=== PATIENT | male | born 1935 | race Caucasian/White ===

== ENCOUNTER 2018-11-06 10:41 | Inpatient (IN) ==
[2018-11-06] MEDS ORDERED: ALBUTEROL 2.5 MG/3 ML NEB RESP TX STA (11:09)
[2018-11-06] MEDS ORDERED: SODIUM CHLORIDE 0.9% 500 ML IV STA (11:09)
[2018-11-06] MEDS ORDERED: methylPREDNISolone SOD SUC 125 MG/2 ML VIAL IV STA (11:09)
[2018-11-06 11:30] LABS: Basophils # 0.1 10*3/uL (0.0-0.2); Basophils % 0.6 % (0.0-0.8); Eosinophils # 0.2 10*3/uL (0.0-0.87); Eosinophils % 2.1 % (0.00-10.9); Hematocrit 37.2 VOL% (42.0-52.0); Hemoglobin 11.1 GM/DL (14.0-18.0); Immature Granulocytes % 0.5 %; Immature Granulocytes Absolute 0.05 #; Lymphocytes # 1.1 10*3/uL (1.4-4.0); Lymphocytes % 10.7 % (21.2-54.2); Mean Corpuscular HGB Conc 29.8 GM/DL (32-36); Mean Corpuscular Hemoglobin 27 PG (27-34); Mean Platelet Volume 10.8 FL (9.6-12.0); Monocytes # 0.8 10*3/uL (0.11-0.8); Monocytes % 7.1 % (1.7-12.7); Neutrophils # 8.4 10*3/uL (1.4-7.4); Platelet Count 226 T/CUMM (130-400); Red Blood Count 4.18 MC/CUMM (3.8-5.5); Red Cell Distribution Width 16.5 % (9.3-17.3); White Blood Count 10.6 T/CUMM (4-12)
[2018-11-06 11:39] LABS: INR 1.2; PT Patient Result 12.5 SECS; Partial Thromboplastin Time 31.6 SECS (0-40)
[2018-11-06 11:49] LABS: ABG Base Excess -2.8 MMOL/L (-2.5-2.5); ABG Oxygen Saturation 94.7 % (95-100); ABG PCO2 27.4 MM HG (35-48); ABG PH 7.466 (7.35-7.45); ABG PO2 71.6 MM HG (80-95); ABG TCO2 17.6 MMOL/L (23-27)
[2018-11-06 12:11] LABS: Bilirubin,Total 0.6 MG/DL (0.2-1.0); Calcium 8.4 MG/DL (8.5-10.1); Osmolality,Calculated 272.1 MOS/KG (273-304); Potassium 4.4 MMOL/L (3.5-5.1); Total Protein 6.8 G/DL (6.4-8.3)
[2018-11-06] MEDS ORDERED: MEROPENEM 1,000 MG in SODIUM CHLORIDE 0.9% 100 ML IV STA (12:12)
[2018-11-06] MEDS ORDERED: ACETAMINOPHEN 325 MG TABLET PO PRN ×2 (12:37→12:42)
[2018-11-06] MEDS ORDERED: traZODone 50 MG TABLET PO PRN (12:42)
[2018-11-06] MEDS ORDERED: ONDANSETRON 4 MG/2 ML VIAL IV PRN (12:42)
[2018-11-06] MEDS ORDERED: ZALEPLON 5 MG CAPSULE PO PRN (12:42)
[2018-11-06] MEDS ORDERED: diphenhydrAMINE CAP 25 MG CAPSULE PO PRN (12:42)
[2018-11-06 13:16] LABS: Risk Ratio 1.92; Thyroid Stimulating Hormone 0.417 uIU/ml (0.358-3.74); VLDL CHOLESTEROL 17.6 MG/DL
[2018-11-06] MEDS ORDERED: SODIUM CHLORIDE 0.9% 500 ML IV ONE (13:16)
[2018-11-06] MEDS ORDERED: methylPREDNISolone SOD SUC 40 MG/1 ML VIAL ONE (13:46)
[2018-11-06] MEDS: methylPREDNISolone SOD SUC 40 MG/1 ML VIAL IV SCH ×2 (13:50→20:50)
[2018-11-06] MEDS: ALBUTEROL 2.5 MG/3 ML NEB RESP TX SCH ×2 (13:51→22:33)
[2018-11-06] MEDS: SODIUM CHLORIDE 0.9% 1,000 ML IV SCH (14:50)
[2018-11-06] MEDS: METOPROLOL TARTRATE 50 MG TABLET PO SCH ×2 (15:41→20:50)
[2018-11-06] MEDS: DORZOLAMIDE 2% OPH SOLN 10 ML BOTTLE BOTH EYES SCH ×2 (15:41→20:50)
[2018-11-06 17:32] LABS: Apearance,Urine CLEAR (Clear); Bilirubin,Urine Negative (Negative); Blood, Urine Negative (Negative); Glucose,Urine (UA) Negative (Negative); Hyaline Casts,Urine 1 /LPF (0-3); Ketones,Urine 20 mg/dL (Negative); Mucus,Urine Occasional /LPF (Occasional); Nitrite,Urine Negative (Negative); Protein,Urine 30 MG/DL; RBC,Urine 24 /HPF (0-4); Renal Epithelial Cells,Urine Occasional /HPF (<1); Squamous Epithelial Cell,Urine Occasional /HPF (0-10); Urine Color Yellow (Yellow); Urine Specific Gravity 1.016 (1.001-1.035); Urine Urobilinogen < 2.0 EU/DL (0.2-1.0); WBC,Urine 12 /HPF (0-6)
[2018-11-06] MEDS: APIXABAN 2.5 MG TABLET PO SCH (20:50)
[2018-11-06] MEDS: SULFAMETHOX/TRIMETHOPRIM 800-160 MG TABLET PO SCH (20:50)
[2018-11-06] MEDS: BIMATOPROST 0.01% OPH SOLN 2.5 ML BOTTLE BOTH EYES SCH (20:50)
[2018-11-06] MEDS: DOCUSATE SODIUM 100 MG CAPSULE PO SCH (20:50)
[2018-11-07] MEDS: SODIUM CHLORIDE 0.9% 1,000 ML IV SCH ×3 (01:11→20:35)
[2018-11-07] MEDS: methylPREDNISolone SOD SUC 40 MG/1 ML VIAL IV SCH ×3 (04:57→20:36)
[2018-11-07 05:20] LABS: Basophils % 0.1 % (0.0-0.8); Eosinophils % 0.1 % (0.00-10.9); Hematocrit 35.5 VOL% (42.0-52.0); Hemoglobin 10.5 GM/DL (14.0-18.0); Immature Granulocytes % 0.7 %; Immature Granulocytes Absolute 0.05 #; Lymphocytes # 0.7 10*3/uL (1.4-4.0); Lymphocytes % 9.5 % (21.2-54.2); Mean Corpuscular HGB Conc 29.6 GM/DL (32-36); Mean Corpuscular Hemoglobin 27 PG (27-34); Mean Corpuscular Volume 89.9 FL (87-102); Mean Platelet Volume 10.7 FL (9.6-12.0); Monocytes # 0.3 10*3/uL (0.11-0.8); Monocytes % 3.5 % (1.7-12.7); Neutrophils # 6.6 10*3/uL (1.4-7.4); Neutrophils % 86.1 % (38.7-73.9); Platelet Count 204 T/CUMM (130-400); Red Blood Count 3.95 MC/CUMM (3.8-5.5); Red Cell Distribution Width 16.1 % (9.3-17.3); White Blood Count 7.6 T/CUMM (4-12)
[2018-11-07 05:25] LABS: Albumin 2.6 G/DL (3.4-5.0); Bilirubin,Total 0.7 MG/DL (0.2-1.0); Calcium 7.8 MG/DL (8.5-10.1); Osmolality,Calculated 282.5 MOS/KG (273-304); Potassium 4.3 MMOL/L (3.5-5.1); Total Protein 6.2 G/DL (6.4-8.3)
[2018-11-07] MEDS: ALBUTEROL 2.5 MG/3 ML NEB RESP TX SCH ×3 (06:57→22:50)
[2018-11-07] MEDS ORDERED: NON-FORMULARY MEDICATION (Fluticasone/Umeclidin/Vilanter [Trelegy Ellipta 100-62.5-25] 1 E INH SCH (09:00)
[2018-11-07] MEDS: ROSUVASTATIN 10 MG TABLET PO SCH (09:03)
[2018-11-07] MEDS: amLODIPine 5 MG TABLET PO SCH (09:03)
[2018-11-07] MEDS: POTASSIUM CHLORIDE 20 MEQ TABLET PO SCH (09:03)
[2018-11-07] MEDS: SULFAMETHOX/TRIMETHOPRIM 800-160 MG TABLET PO SCH ×2 (09:03→20:36)
[2018-11-07] MEDS: MULTIVITAMIN (CENTRUM) TABLET PO SCH (09:03)
[2018-11-07] MEDS: DOCUSATE SODIUM 100 MG CAPSULE PO SCH ×2 (09:04→20:36)
[2018-11-07] MEDS: PANTOPRAZOLE 40 MG TABLET PO SCH (09:04)
[2018-11-07] MEDS: METOPROLOL TARTRATE 50 MG TABLET PO SCH ×2 (09:04→20:36)
[2018-11-07] MEDS: APIXABAN 2.5 MG TABLET PO SCH ×2 (09:04→20:36)
[2018-11-07] MEDS: DORZOLAMIDE 2% OPH SOLN 10 ML BOTTLE BOTH EYES SCH ×3 (09:11→20:36)
[2018-11-07] MEDS: GABAPENTIN 600 MG TABLET PO SCH ×2 (13:15→20:36)
[2018-11-07] MEDS: BIMATOPROST 0.01% OPH SOLN 2.5 ML BOTTLE BOTH EYES SCH (20:36)
[2018-11-08 03:39] LABS: Basophils % 0.2 % (0.0-0.8); Hematocrit 31.7 VOL% (42.0-52.0); Hemoglobin 9.4 GM/DL (14.0-18.0); Immature Granulocytes % 0.5 %; Immature Granulocytes Absolute 0.06 #; Lymphocytes # 0.5 10*3/uL (1.4-4.0); Lymphocytes % 4.3 % (21.2-54.2); Mean Corpuscular HGB Conc 29.7 GM/DL (32-36); Mean Corpuscular Hemoglobin 27 PG (27-34); Mean Corpuscular Volume 90.6 FL (87-102); Mean Platelet Volume 10.8 FL (9.6-12.0); Monocytes # 0.5 10*3/uL (0.11-0.8); Monocytes % 4.6 % (1.7-12.7); Neutrophils # 10.6 10*3/uL (1.4-7.4); Neutrophils % 90.4 % (38.7-73.9); Platelet Count 201 T/CUMM (130-400); Red Cell Distribution Width 16.2 % (9.3-17.3); White Blood Count 11.8 T/CUMM (4-12)
[2018-11-08 04:00] LABS: Albumin 2.5 G/DL (3.4-5.0); Bilirubin,Total 0.4 MG/DL (0.2-1.0); Calcium 7.9 MG/DL (8.5-10.1); Osmolality,Calculated 288.1 MOS/KG (273-304); Potassium 4.6 MMOL/L (3.5-5.1); Total Protein 5.6 G/DL (6.4-8.3)
[2018-11-08 04:04] LABS: Lymphocytes 7 % (20-55); Segmented Neutrophils 91 % (50-85); Total Cells Counted 100
[2018-11-08 04:05] LABS: Ovalocytes 1+; Platelet Estimate Normal
[2018-11-08] MEDS: methylPREDNISolone SOD SUC 40 MG/1 ML VIAL IV SCH ×3 (04:25→21:33)
[2018-11-08] MEDS: ALBUTEROL 2.5 MG/3 ML NEB RESP TX SCH ×3 (08:50→23:28)
[2018-11-08] MEDS: SODIUM CHLORIDE 0.9% 1,000 ML IV SCH ×2 (09:00→17:12)
[2018-11-08] MEDS: SULFAMETHOX/TRIMETHOPRIM 800-160 MG TABLET PO SCH ×2 (09:01→21:32)
[2018-11-08] MEDS: GABAPENTIN 600 MG TABLET PO SCH ×2 (09:01→21:32)
[2018-11-08] MEDS: DOCUSATE SODIUM 100 MG CAPSULE PO SCH ×2 (09:01→21:33)
[2018-11-08] MEDS: ROSUVASTATIN 10 MG TABLET PO SCH (09:01)
[2018-11-08] MEDS: METOPROLOL TARTRATE 50 MG TABLET PO SCH ×2 (09:01→21:33)
[2018-11-08] MEDS: MULTIVITAMIN (CENTRUM) TABLET PO SCH (09:01)
[2018-11-08] MEDS: amLODIPine 5 MG TABLET PO SCH (09:02)
[2018-11-08] MEDS: POTASSIUM CHLORIDE 20 MEQ TABLET PO SCH (09:02)
[2018-11-08] MEDS: DORZOLAMIDE 2% OPH SOLN 10 ML BOTTLE BOTH EYES SCH ×3 (09:02→21:33)
[2018-11-08] MEDS: APIXABAN 2.5 MG TABLET PO SCH ×2 (09:02→21:33)
[2018-11-08] MEDS: PANTOPRAZOLE 40 MG TABLET PO SCH (09:02)
[2018-11-08] MEDS: BIMATOPROST 0.01% OPH SOLN 2.5 ML BOTTLE BOTH EYES SCH (21:33)
[2018-11-09] MEDS: SODIUM CHLORIDE 0.9% 1,000 ML IV SCH ×2 (03:12→16:21)
[2018-11-09] MEDS: methylPREDNISolone SOD SUC 40 MG/1 ML VIAL IV SCH ×3 (03:31→20:27)
[2018-11-09 05:28] LABS: Basophils % 0.1 % (0.0-0.8); Hemoglobin 9.7 GM/DL (14.0-18.0); Immature Granulocytes Absolute 0.12 #; Lymphocytes # 0.4 10*3/uL (1.4-4.0); Lymphocytes % 3.4 % (21.2-54.2); Mean Corpuscular HGB Conc 29.4 GM/DL (32-36); Mean Corpuscular Hemoglobin 27 PG (27-34); Mean Corpuscular Volume 90.7 FL (87-102); Mean Platelet Volume 10.9 FL (9.6-12.0); Monocytes # 0.5 10*3/uL (0.11-0.8); Monocytes % 3.9 % (1.7-12.7); Neutrophils # 11.2 10*3/uL (1.4-7.4); Neutrophils % 91.6 % (38.7-73.9); Platelet Count 207 T/CUMM (130-400); Red Blood Count 3.64 MC/CUMM (3.8-5.5); Red Cell Distribution Width 16.2 % (9.3-17.3); White Blood Count 12.2 T/CUMM (4-12)
[2018-11-09 05:57] LABS: Albumin 2.7 G/DL (3.4-5.0); Bilirubin,Total 0.8 MG/DL (0.2-1.0); Calcium 7.9 MG/DL (8.5-10.1); Osmolality,Calculated 286.3 MOS/KG (273-304); Potassium 4.7 MMOL/L (3.5-5.1); Total Protein 5.8 G/DL (6.4-8.3)
[2018-11-09 06:08] LABS: Lymphocytes 2 % (20-55); Segmented Neutrophils 95 % (50-85); Total Cells Counted 100
[2018-11-09 06:09] LABS: Ovalocytes 1+
[2018-11-09 06:10] LABS: Hypochromasia Slight; Platelet Estimate Normal
[2018-11-09] MEDS: ALBUTEROL 2.5 MG/3 ML NEB RESP TX SCH ×3 (07:42→23:17)
[2018-11-09] MEDS: DOCUSATE SODIUM 100 MG CAPSULE PO SCH ×2 (09:39→20:27)
[2018-11-09] MEDS: POTASSIUM CHLORIDE 20 MEQ TABLET PO SCH (09:39)
[2018-11-09] MEDS: amLODIPine 5 MG TABLET PO SCH (09:39)
[2018-11-09] MEDS: GABAPENTIN 600 MG TABLET PO SCH ×2 (09:39→20:27)
[2018-11-09] MEDS: PANTOPRAZOLE 40 MG TABLET PO SCH (09:39)
[2018-11-09] MEDS: METOPROLOL TARTRATE 50 MG TABLET PO SCH ×2 (09:39→20:27)
[2018-11-09] MEDS: ROSUVASTATIN 10 MG TABLET PO SCH (09:40)
[2018-11-09] MEDS: DORZOLAMIDE 2% OPH SOLN 10 ML BOTTLE BOTH EYES SCH ×3 (09:40→20:28)
[2018-11-09] MEDS: APIXABAN 2.5 MG TABLET PO SCH ×2 (09:40→20:27)
[2018-11-09] MEDS: MULTIVITAMIN (CENTRUM) TABLET PO SCH (09:46)
[2018-11-09] MEDS: SULFAMETHOX/TRIMETHOPRIM 800-160 MG TABLET PO SCH (10:44)
[2018-11-09] MEDS: BIMATOPROST 0.01% OPH SOLN 2.5 ML BOTTLE BOTH EYES SCH (20:28)
[2018-11-10] MEDS: SODIUM CHLORIDE 0.9% 1,000 ML IV SCH ×3 (01:56→22:26)
[2018-11-10] MEDS: methylPREDNISolone SOD SUC 40 MG/1 ML VIAL IV SCH ×3 (04:29→20:30)
[2018-11-10 05:00] LABS: Basophils % 0.1 % (0.0-0.8); Hematocrit 33.7 VOL% (42.0-52.0); Hemoglobin 10.2 GM/DL (14.0-18.0); Immature Granulocytes % 1.7 %; Immature Granulocytes Absolute 0.21 #; Lymphocytes # 0.6 10*3/uL (1.4-4.0); Mean Corpuscular HGB Conc 30.3 GM/DL (32-36); Mean Corpuscular Hemoglobin 27 PG (27-34); Mean Corpuscular Volume 89.6 FL (87-102); Mean Platelet Volume 10.7 FL (9.6-12.0); Monocytes # 0.7 10*3/uL (0.11-0.8); Monocytes % 5.5 % (1.7-12.7); NRBC # 0.02 10*3/uL; Neutrophils # 10.9 10*3/uL (1.4-7.4); Neutrophils % 87.7 % (38.7-73.9); Platelet Count 252 T/CUMM (130-400); Red Blood Count 3.76 MC/CUMM (3.8-5.5); Red Cell Distribution Width 16.1 % (9.3-17.3); White Blood Count 12.5 T/CUMM (4-12)
[2018-11-10 05:32] LABS: Albumin 2.9 G/DL (3.4-5.0); Bilirubin,Total 0.4 MG/DL (0.2-1.0); Calcium 7.9 MG/DL (8.5-10.1); Osmolality,Calculated 284.3 MOS/KG (273-304); Potassium 4.8 MMOL/L (3.5-5.1); Total Protein 6.2 G/DL (6.4-8.3)
[2018-11-10] MEDS: ALBUTEROL 2.5 MG/3 ML NEB RESP TX SCH ×3 (06:59→23:22)
[2018-11-10] MEDS: POTASSIUM CHLORIDE 20 MEQ TABLET PO SCH (08:45)
[2018-11-10] MEDS: PANTOPRAZOLE 40 MG TABLET PO SCH (08:47)
[2018-11-10] MEDS: amLODIPine 5 MG TABLET PO SCH (08:47)
[2018-11-10] MEDS: ROSUVASTATIN 10 MG TABLET PO SCH (08:47)
[2018-11-10] MEDS: MULTIVITAMIN (CENTRUM) TABLET PO SCH (08:48)
[2018-11-10] MEDS: APIXABAN 2.5 MG TABLET PO SCH ×2 (08:48→20:30)
[2018-11-10] MEDS: GABAPENTIN 600 MG TABLET PO SCH ×2 (08:49→20:30)
[2018-11-10] MEDS: DORZOLAMIDE 2% OPH SOLN 10 ML BOTTLE BOTH EYES SCH ×3 (08:51→20:30)
[2018-11-10] MEDS: DOCUSATE SODIUM 100 MG CAPSULE PO SCH ×2 (08:54→20:30)
[2018-11-10] MEDS: METOPROLOL TARTRATE 50 MG TABLET PO SCH (08:54)
[2018-11-10] MEDS: BIMATOPROST 0.01% OPH SOLN 2.5 ML BOTTLE BOTH EYES SCH (20:30)
[2018-11-10] MEDS: METOPROLOL TARTRATE 100 MG TABLET PO SCH (20:30)
[2018-11-11] MEDS: methylPREDNISolone SOD SUC 40 MG/1 ML VIAL IV SCH ×3 (05:32→22:10)
[2018-11-11] MEDS: ALBUTEROL 2.5 MG/3 ML NEB RESP TX SCH ×3 (07:50→22:52)
[2018-11-11] MEDS: POTASSIUM CHLORIDE 20 MEQ TABLET PO SCH (09:00)
[2018-11-11] MEDS ORDERED: CEFTAROLINE 600 MG in SODIUM CHLORIDE 0.9% 100 ML IV SCH (09:00)
[2018-11-11] MEDS: GABAPENTIN 600 MG TABLET PO SCH ×2 (09:01→22:13)
[2018-11-11] MEDS: ROSUVASTATIN 10 MG TABLET PO SCH (09:03)
[2018-11-11] MEDS: METOPROLOL TARTRATE 100 MG TABLET PO SCH ×2 (09:03→22:13)
[2018-11-11] MEDS: PANTOPRAZOLE 40 MG TABLET PO SCH (09:04)
[2018-11-11] MEDS: APIXABAN 2.5 MG TABLET PO SCH ×2 (09:04→22:14)
[2018-11-11] MEDS: MULTIVITAMIN (CENTRUM) TABLET PO SCH (09:04)
[2018-11-11] MEDS: amLODIPine 5 MG TABLET PO SCH (09:05)
[2018-11-11] MEDS: DORZOLAMIDE 2% OPH SOLN 10 ML BOTTLE BOTH EYES SCH ×3 (09:06→22:16)
[2018-11-11] MEDS: DOCUSATE SODIUM 100 MG CAPSULE PO SCH ×2 (09:14→22:13)
[2018-11-11] MEDS: FUROSEMIDE 40 MG/4 ML VIAL IV SCH (12:02)
[2018-11-11] MEDS: CEFEPIME 1,000 MG in SYRINGE 1 EACH IV SCH ×2 (12:04→22:12)
[2018-11-11] MEDS: BIMATOPROST 0.01% OPH SOLN 2.5 ML BOTTLE BOTH EYES SCH (22:15)
[2018-11-12] MEDS: methylPREDNISolone SOD SUC 40 MG/1 ML VIAL IV SCH ×3 (05:31→21:40)
[2018-11-12 05:33] LABS: Calcium 8.1 MG/DL (8.5-10.1)
[2018-11-12 05:34] LABS: Osmolality,Calculated 283.5 MOS/KG (273-304); Potassium 4.2 MMOL/L (3.5-5.1)
[2018-11-12] MEDS: CEFEPIME 1,000 MG in SYRINGE 1 EACH IV SCH ×3 (05:34→21:42)
[2018-11-12] MEDS: ALBUTEROL 2.5 MG/3 ML NEB RESP TX SCH ×3 (07:17→23:52)
[2018-11-12] MEDS: MULTIVITAMIN (CENTRUM) TABLET PO SCH (09:28)
[2018-11-12] MEDS: APIXABAN 2.5 MG TABLET PO SCH ×2 (09:28→21:41)
[2018-11-12] MEDS: POTASSIUM CHLORIDE 20 MEQ TABLET PO SCH (09:28)
[2018-11-12] MEDS: ROSUVASTATIN 10 MG TABLET PO SCH (09:28)
[2018-11-12] MEDS: DOCUSATE SODIUM 100 MG CAPSULE PO SCH ×2 (09:32→21:41)
[2018-11-12] MEDS: amLODIPine 5 MG TABLET PO SCH (09:33)
[2018-11-12] MEDS: FUROSEMIDE 40 MG/4 ML VIAL IV SCH (09:33)
[2018-11-12] MEDS: PANTOPRAZOLE 40 MG TABLET PO SCH (09:33)
[2018-11-12] MEDS: METOPROLOL TARTRATE 100 MG TABLET PO SCH ×2 (09:33→20:14)
[2018-11-12] MEDS: GABAPENTIN 600 MG TABLET PO SCH ×2 (09:33→21:40)
[2018-11-12] MEDS: DORZOLAMIDE 2% OPH SOLN 10 ML BOTTLE BOTH EYES SCH ×3 (09:33→21:50)
[2018-11-12] MEDS: BIMATOPROST 0.01% OPH SOLN 2.5 ML BOTTLE BOTH EYES SCH (21:51)
[2018-11-13] MEDS: methylPREDNISolone SOD SUC 40 MG/1 ML VIAL IV SCH ×3 (05:55→20:38)
[2018-11-13] MEDS: CEFEPIME 1,000 MG in SYRINGE 1 EACH IV SCH ×3 (05:55→20:39)
[2018-11-13] MEDS ORDERED: PROMETHAZINE 25 MG/1 ML VIAL IM ONE (07:00)
[2018-11-13] MEDS ORDERED: GLYCOPYRROLATE 0.4 MG/2 ML VIAL IM ONE (07:00)
[2018-11-13] MEDS ORDERED: MEPERIDINE 50 MG/1 ML VIAL IM ONE (07:00)
[2018-11-13] MEDS: ALBUTEROL 2.5 MG/3 ML NEB RESP TX SCH ×3 (07:03→23:19)
[2018-11-13] MEDS ORDERED: MIDAZOLAM 2 MG/2 ML VIAL ONE (07:18)
[2018-11-13] MEDS ORDERED: LIDOCAINE 2% VISCOUS 100 ML BOTTLE SWISH/SPIT ONE (07:30)
[2018-11-13] MEDS ORDERED: MIDAZOLAM 2 MG/2 ML VIAL IV ONE (07:30)
[2018-11-13] MEDS ORDERED: LIDOCAINE 2% 20 ML VIAL RESP TX ONE (07:30)
[2018-11-13] MEDS ORDERED: LIDOCAINE 1% 20 ML VIAL MISC INJ ONE (07:30)
[2018-11-13] MEDS: MULTIVITAMIN (CENTRUM) TABLET PO SCH (11:24)
[2018-11-13] MEDS: amLODIPine 5 MG TABLET PO SCH (11:26)
[2018-11-13] MEDS: APIXABAN 2.5 MG TABLET PO SCH ×2 (11:26→20:39)
[2018-11-13] MEDS: METOPROLOL TARTRATE 100 MG TABLET PO SCH ×2 (11:27→20:39)
[2018-11-13] MEDS: PANTOPRAZOLE 40 MG TABLET PO SCH (11:27)
[2018-11-13] MEDS: POTASSIUM CHLORIDE 20 MEQ TABLET PO SCH (11:28)
[2018-11-13] MEDS: GABAPENTIN 600 MG TABLET PO SCH ×2 (11:29→20:39)
[2018-11-13] MEDS: ROSUVASTATIN 10 MG TABLET PO SCH (11:30)
[2018-11-13] MEDS: FUROSEMIDE 40 MG/4 ML VIAL IV SCH (11:30)
[2018-11-13] MEDS: DORZOLAMIDE 2% OPH SOLN 10 ML BOTTLE BOTH EYES SCH ×3 (11:30→20:38)
[2018-11-13] MEDS: DOCUSATE SODIUM 100 MG CAPSULE PO SCH ×2 (11:32→20:39)
[2018-11-13] MEDS: BIMATOPROST 0.01% OPH SOLN 2.5 ML BOTTLE BOTH EYES SCH (20:38)
[2018-11-14] MEDS: methylPREDNISolone SOD SUC 40 MG/1 ML VIAL IV SCH ×3 (04:20→20:38)
[2018-11-14] MEDS: CEFEPIME 1,000 MG in SYRINGE 1 EACH IV SCH ×3 (04:20→20:36)
[2018-11-14] MEDS: ALBUTEROL 2.5 MG/3 ML NEB RESP TX SCH ×3 (07:26→23:53)
[2018-11-14] MEDS: APIXABAN 2.5 MG TABLET PO SCH ×2 (08:58→20:37)
[2018-11-14] MEDS: ROSUVASTATIN 10 MG TABLET PO SCH (08:58)
[2018-11-14] MEDS: PANTOPRAZOLE 40 MG TABLET PO SCH (08:58)
[2018-11-14] MEDS: POTASSIUM CHLORIDE 20 MEQ TABLET PO SCH (09:00)
[2018-11-14] MEDS: amLODIPine 5 MG TABLET PO SCH (09:00)
[2018-11-14] MEDS: MULTIVITAMIN (CENTRUM) TABLET PO SCH (09:01)
[2018-11-14] MEDS: METOPROLOL TARTRATE 100 MG TABLET PO SCH ×2 (09:01→20:38)
[2018-11-14] MEDS: FUROSEMIDE 40 MG/4 ML VIAL IV SCH (09:02)
[2018-11-14] MEDS: GABAPENTIN 600 MG TABLET PO SCH ×2 (09:08→20:37)
[2018-11-14] MEDS: DORZOLAMIDE 2% OPH SOLN 10 ML BOTTLE BOTH EYES SCH ×3 (09:09→20:42)
[2018-11-14] MEDS: DOCUSATE SODIUM 100 MG CAPSULE PO SCH ×2 (09:10→23:14)
[2018-11-14] MEDS: BIMATOPROST 0.01% OPH SOLN 2.5 ML BOTTLE BOTH EYES SCH (20:42)
[2018-11-15] MEDS: CEFEPIME 1,000 MG in SYRINGE 1 EACH IV SCH (05:22)
[2018-11-15] MEDS: methylPREDNISolone SOD SUC 40 MG/1 ML VIAL IV SCH (05:28)
[2018-11-15 07:51] VITALS: BP 138/71
[2018-11-15] MEDS: ALBUTEROL 2.5 MG/3 ML NEB RESP TX SCH (08:43)
[2018-11-15] MEDS: DOCUSATE SODIUM 100 MG CAPSULE PO SCH (09:06)
[2018-11-15] MEDS: amLODIPine 5 MG TABLET PO SCH (09:07)
[2018-11-15] MEDS: ROSUVASTATIN 10 MG TABLET PO SCH (09:07)
[2018-11-15] MEDS: APIXABAN 2.5 MG TABLET PO SCH (09:07)
[2018-11-15] MEDS: PANTOPRAZOLE 40 MG TABLET PO SCH (09:07)
[2018-11-15] MEDS: METOPROLOL TARTRATE 100 MG TABLET PO SCH (09:08)
[2018-11-15] MEDS: POTASSIUM CHLORIDE 20 MEQ TABLET PO SCH (09:09)
[2018-11-15] MEDS: GABAPENTIN 600 MG TABLET PO SCH (09:10)
[2018-11-15] MEDS: DORZOLAMIDE 2% OPH SOLN 10 ML BOTTLE BOTH EYES SCH (09:10)
[2018-11-15] MEDS: NYSTATIN 500,000 UNIT/5 ML UDCUP SWISH/SWAL SCH ×2 (09:11→12:25)
[2018-11-15] MEDS: MULTIVITAMIN (CENTRUM) TABLET PO SCH (09:12)
[2018-11-15] MEDS: FUROSEMIDE 40 MG/4 ML VIAL IV SCH (09:13)
== END 2018-11-15 13:45 | DRG 190 ==
LOC: N.ED 10:41 → SUATTDRO 12:15 → INTOOBSV 12:15 → N.EDINP 12:15 → N.2E 13:25
PROVIDERS: ADMIT Hospitalist; ATTEND Internal Medicine

== ENCOUNTER 2018-11-23 04:07 | Inpatient (IN) ==
[2018-11-23] MEDS ORDERED: ALBUTEROL/IPRATROPIUM 3 ML NEB RESP TX STA (04:16)
[2018-11-23] MEDS ORDERED: SODIUM CHLORIDE 0.9% 1,000 ML IV STA (04:16)
[2018-11-23] MEDS ORDERED: methylPREDNISolone SOD SUC 125 MG/2 ML VIAL IV STA (04:16)
[2018-11-23] MEDS ORDERED: FUROSEMIDE 100 MG/10 ML VIAL IV STA (04:16)
[2018-11-23 04:45] LABS: ABG Base Excess 7.1 MMOL/L (-2.5-2.5); ABG HCO3 30.7 MMOL/L (20-26); ABG Oxygen Saturation 89.1 % (95-100); ABG PCO2 58.3 MM HG (35-48); ABG PH 7.375 (7.35-7.45); ABG PO2 62.1 MM HG (80-95); ABG TCO2 30.7 MMOL/L (23-27)
[2018-11-23 04:51] LABS: PT Patient Result 10.7 SECS
[2018-11-23 04:54] LABS: Bilirubin,Total 0.6 MG/DL (0.2-1.0); Calcium 8.3 MG/DL (8.5-10.1); Osmolality,Calculated 283.4 MOS/KG (273-304); Potassium 4.7 MMOL/L (3.5-5.1); Total Protein 6.3 G/DL (6.4-8.3)
[2018-11-23 05:05] LABS: Basophils % 0.2 % (0.0-0.8); Eosinophils % 0.1 % (0.00-10.9); Hematocrit 39.9 VOL% (42.0-52.0); Hemoglobin 11.6 GM/DL (14.0-18.0); Immature Granulocytes % 0.9 %; Immature Granulocytes Absolute 0.14 #; Lymphocytes # 1.2 10*3/uL (1.4-4.0); Lymphocytes % 7.1 % (21.2-54.2); Mean Corpuscular HGB Conc 29.1 GM/DL (32-36); Mean Corpuscular Hemoglobin 27 PG (27-34); Mean Corpuscular Volume 93.2 FL (87-102); Mean Platelet Volume 10.8 FL (9.6-12.0); Monocytes # 0.5 10*3/uL (0.11-0.8); Monocytes % 3.1 % (1.7-12.7); Neutrophils # 14.5 10*3/uL (1.4-7.4); Neutrophils % 88.6 % (38.7-73.9); Platelet Count 242 T/CUMM (130-400); Red Blood Count 4.28 MC/CUMM (3.8-5.5); Red Cell Distribution Width 17.7 % (9.3-17.3); White Blood Count 16.3 T/CUMM (4-12)
[2018-11-23 05:24] LABS: Ovalocytes 1+; Platelet Estimate Normal
[2018-11-23] MEDS ORDERED: AZITHROMYCIN INJ 500 MG in SODIUM CHLORIDE 0.9% 250 ML IV STA (05:26)
[2018-11-23] MEDS ORDERED: VANCOMYCIN INJ 1,000 MG in SODIUM CHLORIDE 0.9% 250 ML IV STA (05:30)
[2018-11-23] MEDS ORDERED: ACETAMINOPHEN 650 MG SUPP RECTAL STA (06:48)
[2018-11-23] MEDS ORDERED: MEROPENEM 1,000 MG VIAL IV ONE (10:35)
[2018-11-23] MEDS ORDERED: methylPREDNISolone SOD SUC 40 MG/1 ML VIAL ONE (10:35)
[2018-11-23 10:47] LABS: ABG Base Excess 6.5 MMOL/L (-2.5-2.5); ABG HCO3 30.4 MMOL/L (20-26); ABG Oxygen Saturation 98.5 % (95-100); ABG PCO2 45.2 MM HG (35-48); ABG TCO2 28.2 MMOL/L (23-27)
[2018-11-23] MEDS: methylPREDNISolone SOD SUC 40 MG/1 ML VIAL IV SCH ×2 (11:00→19:47)
[2018-11-23] MEDS: MEROPENEM 1,000 MG in SODIUM CHLORIDE 0.9% 100 ML IV SCH ×2 (11:05→19:00)
[2018-11-23] MEDS: ALBUTEROL/IPRATROPIUM 3 ML NEB RESP TX SCH ×2 (11:53→19:49)
[2018-11-23] MEDS ORDERED: VANCOMYCIN 1,000 MG VIAL ONE (17:47)
[2018-11-23] MEDS: ACETAMINOPHEN 325 MG TABLET PO PRN (17:49)
[2018-11-23] MEDS: VANCOMYCIN INJ 1,000 MG in SODIUM CHLORIDE 0.9% 250 ML IV SCH (18:00)
[2018-11-23] MEDS ORDERED: DORZOLAMIDE 2% OPH SOLN 10 ML BOTTLE BOTH EYES SCH (21:00)
[2018-11-23] MEDS: METOPROLOL TARTRATE 100 MG TABLET PO SCH (21:42)
[2018-11-23] MEDS: GABAPENTIN 600 MG TABLET PO SCH (21:42)
[2018-11-23] MEDS: APIXABAN 2.5 MG TABLET PO SCH (21:42)
[2018-11-23] MEDS: BIMATOPROST 0.01% OPH SOLN 2.5 ML BOTTLE BOTH EYES SCH (22:38)
[2018-11-24] MEDS: ALBUTEROL/IPRATROPIUM 3 ML NEB RESP TX SCH ×4 (00:38→19:20)
[2018-11-24] MEDS: methylPREDNISolone SOD SUC 40 MG/1 ML VIAL IV SCH ×3 (03:07→19:17)
[2018-11-24] MEDS: MEROPENEM 1,000 MG in SODIUM CHLORIDE 0.9% 100 ML IV SCH ×3 (03:09→19:17)
[2018-11-24] MEDS: ACETAMINOPHEN 325 MG TABLET PO PRN (03:45)
[2018-11-24] MEDS: VANCOMYCIN INJ 1,000 MG in SODIUM CHLORIDE 0.9% 250 ML IV SCH ×2 (05:23→18:00)
[2018-11-24 05:30] LABS: Basophils % 0.1 % (0.0-0.8); Hemoglobin 9.9 GM/DL (14.0-18.0); Immature Granulocytes % 0.7 %; Immature Granulocytes Absolute 0.07 #; Lymphocytes # 0.4 10*3/uL (1.4-4.0); Lymphocytes % 4.4 % (21.2-54.2); Mean Corpuscular Hemoglobin 27 PG (27-34); Mean Corpuscular Volume 92.7 FL (87-102); Mean Platelet Volume 10.9 FL (9.6-12.0); Monocytes # 0.2 10*3/uL (0.11-0.8); Monocytes % 2.3 % (1.7-12.7); Neutrophils # 9.4 10*3/uL (1.4-7.4); Neutrophils % 92.5 % (38.7-73.9); Platelet Count 176 T/CUMM (130-400); Red Blood Count 3.68 MC/CUMM (3.8-5.5); Red Cell Distribution Width 17.6 % (9.3-17.3); White Blood Count 10.1 T/CUMM (4-12)
[2018-11-24 05:36] LABS: Hematocrit 34.1 VOL% (42.0-52.0)
[2018-11-24] MEDS: APIXABAN 2.5 MG TABLET PO SCH ×2 (08:57→21:24)
[2018-11-24] MEDS: amLODIPine 5 MG TABLET PO SCH (08:57)
[2018-11-24] MEDS: ROSUVASTATIN 10 MG TABLET PO SCH (08:57)
[2018-11-24] MEDS: METOPROLOL TARTRATE 100 MG TABLET PO SCH ×2 (08:57→21:25)
[2018-11-24] MEDS: FUROSEMIDE 40 MG TABLET PO SCH (08:57)
[2018-11-24] MEDS: GABAPENTIN 600 MG TABLET PO SCH ×2 (08:57→21:25)
[2018-11-24] MEDS ORDERED: POTASSIUM CHLORIDE 20 MEQ TABLET PO SCH (09:00)
[2018-11-24] MEDS: DORNASE ALFA 2.5 MG/2.5 ML VIAL RESP TX SCH (19:20)
[2018-11-24] MEDS: BIMATOPROST 0.01% OPH SOLN 2.5 ML BOTTLE BOTH EYES SCH (21:24)
[2018-11-24] MEDS: SULFAMETHOX/TRIMETHOPRIM 800-160 MG TABLET PO SCH (21:25)
[2018-11-25] MEDS: ALBUTEROL/IPRATROPIUM 3 ML NEB RESP TX SCH ×4 (01:25→20:00)
[2018-11-25] MEDS ORDERED: METOPROLOL TARTRATE 5 MG/5 ML VIAL IV ONE (02:08)
[2018-11-25] MEDS: methylPREDNISolone SOD SUC 40 MG/1 ML VIAL IV SCH ×3 (03:49→23:08)
[2018-11-25] MEDS: MEROPENEM 1,000 MG in SODIUM CHLORIDE 0.9% 100 ML IV SCH ×4 (03:51→18:20)
[2018-11-25 06:24] LABS: Calcium 8.4 MG/DL (8.5-10.1); Osmolality,Calculated 297.8 MOS/KG (273-304); Potassium 3.9 MMOL/L (3.5-5.1)
[2018-11-25] MEDS: VANCOMYCIN INJ 1,000 MG in SODIUM CHLORIDE 0.9% 250 ML IV SCH ×2 (06:33→18:20)
[2018-11-25 06:35] LABS: Basophils % 0.1 % (0.0-0.8); Hematocrit 35.6 VOL% (42.0-52.0); Hemoglobin 10.3 GM/DL (14.0-18.0); Immature Granulocytes % 0.6 %; Immature Granulocytes Absolute 0.08 #; Lymphocytes # 0.3 10*3/uL (1.4-4.0); Mean Corpuscular HGB Conc 28.9 GM/DL (32-36); Mean Corpuscular Hemoglobin 27 PG (27-34); Mean Platelet Volume 10.5 FL (9.6-12.0); Monocytes # 0.4 10*3/uL (0.11-0.8); Neutrophils # 12.2 10*3/uL (1.4-7.4); Neutrophils % 94.3 % (38.7-73.9); Platelet Count 174 T/CUMM (130-400); Red Blood Count 3.83 MC/CUMM (3.8-5.5); Red Cell Distribution Width 17.7 % (9.3-17.3)
[2018-11-25 06:43] LABS: Band Neutrophils 1 % (0-10); Lymphocytes 2 % (20-55); Platelet Estimate Adequate; Segmented Neutrophils 93 % (50-85); Total Cells Counted 100
[2018-11-25 06:44] LABS: Hypochromasia 1+; Ovalocytes Slight
[2018-11-25] MEDS: DORNASE ALFA 2.5 MG/2.5 ML VIAL RESP TX SCH ×2 (07:43→21:08)
[2018-11-25] MEDS: SULFAMETHOX/TRIMETHOPRIM 800-160 MG TABLET PO SCH ×2 (09:34→23:09)
[2018-11-25] MEDS: APIXABAN 2.5 MG TABLET PO SCH ×2 (09:34→23:09)
[2018-11-25] MEDS: ROSUVASTATIN 10 MG TABLET PO SCH (09:35)
[2018-11-25] MEDS: amLODIPine 5 MG TABLET PO SCH (09:35)
[2018-11-25] MEDS: FUROSEMIDE 40 MG TABLET PO SCH (09:35)
[2018-11-25] MEDS: METOPROLOL TARTRATE 100 MG TABLET PO SCH ×2 (09:35→23:09)
[2018-11-25] MEDS: GABAPENTIN 600 MG TABLET PO SCH ×2 (09:35→23:10)
[2018-11-25] MEDS: ACETAMINOPHEN 325 MG TABLET PO PRN (11:52)
[2018-11-25] MEDS: MONTELUKAST 10 MG TABLET PO SCH ×2 (14:19→23:10)
[2018-11-25] MEDS: BIMATOPROST 0.01% OPH SOLN 2.5 ML BOTTLE BOTH EYES SCH (23:09)
[2018-11-26] MEDS: ALBUTEROL/IPRATROPIUM 3 ML NEB RESP TX SCH ×4 (01:45→19:23)
[2018-11-26] MEDS: methylPREDNISolone SOD SUC 40 MG/1 ML VIAL IV SCH ×3 (03:00→18:15)
[2018-11-26] MEDS: MEROPENEM 1,000 MG in SODIUM CHLORIDE 0.9% 100 ML IV SCH ×2 (03:02→13:05)
[2018-11-26 05:32] LABS: Basophils % 0.1 % (0.0-0.8); Hematocrit 32.6 VOL% (42.0-52.0); Hemoglobin 9.6 GM/DL (14.0-18.0); Immature Granulocytes % 0.6 %; Immature Granulocytes Absolute 0.08 #; Lymphocytes # 0.2 10*3/uL (1.4-4.0); Lymphocytes % 1.8 % (21.2-54.2); Mean Corpuscular HGB Conc 29.4 GM/DL (32-36); Mean Corpuscular Hemoglobin 27 PG (27-34); Mean Corpuscular Volume 91.3 FL (87-102); Mean Platelet Volume 11.3 FL (9.6-12.0); Monocytes # 0.3 10*3/uL (0.11-0.8); Monocytes % 2.3 % (1.7-12.7); Neutrophils % 95.2 % (38.7-73.9); Platelet Count 159 T/CUMM (130-400); Red Blood Count 3.57 MC/CUMM (3.8-5.5); Red Cell Distribution Width 17.7 % (9.3-17.3); White Blood Count 13.6 T/CUMM (4-12)
[2018-11-26 05:43] LABS: Osmolality,Calculated 296.8 MOS/KG (273-304); Potassium 3.9 MMOL/L (3.5-5.1)
[2018-11-26] MEDS: VANCOMYCIN INJ 1,000 MG in SODIUM CHLORIDE 0.9% 250 ML IV SCH (05:58)
[2018-11-26 06:06] LABS: Hypochromasia 1+; Lymphocytes 2 % (20-55); Ovalocytes Slight; Platelet Estimate Adequate; Segmented Neutrophils 98 % (50-85); Total Cells Counted 100
[2018-11-26] MEDS: DORNASE ALFA 2.5 MG/2.5 ML VIAL RESP TX SCH ×2 (07:41→19:30)
[2018-11-26] MEDS: ROSUVASTATIN 10 MG TABLET PO SCH (08:46)
[2018-11-26] MEDS: MONTELUKAST 10 MG TABLET PO SCH ×2 (08:46→21:08)
[2018-11-26] MEDS: SULFAMETHOX/TRIMETHOPRIM 800-160 MG TABLET PO SCH ×2 (08:46→21:07)
[2018-11-26] MEDS: FUROSEMIDE 40 MG TABLET PO SCH (08:46)
[2018-11-26] MEDS: amLODIPine 5 MG TABLET PO SCH (08:46)
[2018-11-26] MEDS: GABAPENTIN 600 MG TABLET PO SCH ×2 (08:46→21:08)
[2018-11-26] MEDS: METOPROLOL TARTRATE 100 MG TABLET PO SCH ×2 (08:47→21:08)
[2018-11-26] MEDS: APIXABAN 2.5 MG TABLET PO SCH ×2 (08:47→21:07)
[2018-11-26] MEDS ORDERED: DIGOXIN 0.5 MG/2 ML AMP IV ONE (14:04)
[2018-11-26] MEDS: BIMATOPROST 0.01% OPH SOLN 2.5 ML BOTTLE BOTH EYES SCH (21:08)
[2018-11-27] MEDS: ALBUTEROL/IPRATROPIUM 3 ML NEB RESP TX SCH ×4 (00:37→20:13)
[2018-11-27] MEDS: methylPREDNISolone SOD SUC 40 MG/1 ML VIAL IV SCH ×4 (03:00→18:49)
[2018-11-27 06:29] LABS: Hemoglobin 10.5 GM/DL (14.0-18.0); Immature Granulocytes Absolute 0.12 #; Lymphocytes # 0.5 10*3/uL (1.4-4.0); Lymphocytes % 4.2 % (21.2-54.2); Mean Corpuscular Hemoglobin 27 PG (27-34); Mean Platelet Volume 11.3 FL (9.6-12.0); Monocytes # 0.3 10*3/uL (0.11-0.8); Monocytes % 2.9 % (1.7-12.7); NRBC # 0.02 10*3/uL; Neutrophils # 10.9 10*3/uL (1.4-7.4); Neutrophils % 91.9 % (38.7-73.9); Platelet Count 172 T/CUMM (130-400); Red Blood Count 3.89 MC/CUMM (3.8-5.5); Red Cell Distribution Width 17.7 % (9.3-17.3); White Blood Count 11.9 T/CUMM (4-12)
[2018-11-27 06:34] LABS: Calcium 8.2 MG/DL (8.5-10.1); Osmolality,Calculated 295.8 MOS/KG (273-304); Potassium 4.5 MMOL/L (3.5-5.1)
[2018-11-27] MEDS: DORNASE ALFA 2.5 MG/2.5 ML VIAL RESP TX SCH ×2 (07:31→20:13)
[2018-11-27 07:49] LABS: Segmented Neutrophils 98 % (50-85); Total Cells Counted 100
[2018-11-27 07:50] LABS: Anisocytosis Slight; Hypochromasia 1+; Ovalocytes Few; Platelet Estimate Adequate; Poikilocytosis Slight; Polychromasia Slight
[2018-11-27] MEDS: dilTIAZem Drip 125 MG/125 ML PREMIX IV SCH ×2 (08:28→17:16)
[2018-11-27] MEDS: GABAPENTIN 600 MG TABLET PO SCH ×2 (09:38→22:30)
[2018-11-27] MEDS: METOPROLOL TARTRATE 100 MG TABLET PO SCH ×2 (09:39→22:31)
[2018-11-27] MEDS: MONTELUKAST 10 MG TABLET PO SCH ×2 (09:39→22:30)
[2018-11-27] MEDS: ROSUVASTATIN 10 MG TABLET PO SCH (09:39)
[2018-11-27] MEDS: APIXABAN 2.5 MG TABLET PO SCH ×2 (09:39→22:31)
[2018-11-27] MEDS: amLODIPine 5 MG TABLET PO SCH (09:39)
[2018-11-27] MEDS: SULFAMETHOX/TRIMETHOPRIM 800-160 MG TABLET PO SCH ×2 (09:39→22:30)
[2018-11-27] MEDS: FUROSEMIDE 40 MG TABLET PO SCH (09:39)
[2018-11-27] MEDS: ACETAMINOPHEN 325 MG TABLET PO PRN (12:44)
[2018-11-27] MEDS: FLUCONAZOLE INJ 200 MG in PREMIX 1 EACH IV SCH (12:46)
[2018-11-27] MEDS: BIMATOPROST 0.01% OPH SOLN 2.5 ML BOTTLE BOTH EYES SCH (22:31)
[2018-11-28] MEDS: ALBUTEROL/IPRATROPIUM 3 ML NEB RESP TX SCH ×4 (00:15→19:31)
[2018-11-28] MEDS: methylPREDNISolone SOD SUC 40 MG/1 ML VIAL IV SCH ×3 (03:00→19:06)
[2018-11-28] MEDS: dilTIAZem Drip 125 MG/125 ML PREMIX IV SCH ×3 (03:48→15:24)
[2018-11-28] MEDS: DORNASE ALFA 2.5 MG/2.5 ML VIAL RESP TX SCH ×2 (07:23→19:43)
[2018-11-28] MEDS: ROSUVASTATIN 10 MG TABLET PO SCH (09:34)
[2018-11-28] MEDS: SULFAMETHOX/TRIMETHOPRIM 800-160 MG TABLET PO SCH ×2 (09:34→21:02)
[2018-11-28] MEDS: FUROSEMIDE 40 MG TABLET PO SCH (09:34)
[2018-11-28] MEDS: APIXABAN 2.5 MG TABLET PO SCH ×2 (09:34→21:03)
[2018-11-28] MEDS: MONTELUKAST 10 MG TABLET PO SCH ×2 (09:34→21:03)
[2018-11-28] MEDS: amLODIPine 5 MG TABLET PO SCH (09:34)
[2018-11-28] MEDS: METOPROLOL TARTRATE 100 MG TABLET PO SCH ×2 (09:34→21:02)
[2018-11-28] MEDS: GABAPENTIN 600 MG TABLET PO SCH ×2 (09:34→21:03)
[2018-11-28] MEDS: FLUCONAZOLE INJ 200 MG in PREMIX 1 EACH IV SCH (12:22)
[2018-11-28] MEDS: BIMATOPROST 0.01% OPH SOLN 2.5 ML BOTTLE BOTH EYES SCH (21:04)
[2018-11-29] MEDS: ACETAMINOPHEN 325 MG TABLET PO PRN (00:15)
[2018-11-29] MEDS: ALBUTEROL/IPRATROPIUM 3 ML NEB RESP TX SCH ×4 (00:52→21:00)
[2018-11-29] MEDS: methylPREDNISolone SOD SUC 40 MG/1 ML VIAL IV SCH ×3 (03:10→18:29)
[2018-11-29] MEDS: dilTIAZem Drip 125 MG/125 ML PREMIX IV SCH (05:41)
[2018-11-29] MEDS: DORNASE ALFA 2.5 MG/2.5 ML VIAL RESP TX SCH ×2 (08:16→21:07)
[2018-11-29] MEDS: METOPROLOL TARTRATE 100 MG TABLET PO SCH ×2 (08:56→21:15)
[2018-11-29] MEDS: APIXABAN 2.5 MG TABLET PO SCH ×2 (08:56→21:15)
[2018-11-29] MEDS: SULFAMETHOX/TRIMETHOPRIM 800-160 MG TABLET PO SCH ×3 (08:57→21:17)
[2018-11-29] MEDS: amLODIPine 5 MG TABLET PO SCH (08:57)
[2018-11-29] MEDS: FUROSEMIDE 40 MG TABLET PO SCH (08:57)
[2018-11-29] MEDS: MONTELUKAST 10 MG TABLET PO SCH ×2 (08:57→21:14)
[2018-11-29] MEDS: GABAPENTIN 600 MG TABLET PO SCH ×2 (08:57→21:14)
[2018-11-29] MEDS: ROSUVASTATIN 10 MG TABLET PO SCH (08:57)
[2018-11-29] MEDS: FLUCONAZOLE INJ 200 MG in PREMIX 1 EACH IV SCH (12:04)
[2018-11-29] MEDS: DILTIAZEM CD 120 MG CAPSULE PO SCH (21:15)
[2018-11-29] MEDS: BIMATOPROST 0.01% OPH SOLN 2.5 ML BOTTLE BOTH EYES SCH (21:17)
[2018-11-30] MEDS: ALBUTEROL/IPRATROPIUM 3 ML NEB RESP TX SCH ×4 (00:30→19:38)
[2018-11-30] MEDS: methylPREDNISolone SOD SUC 40 MG/1 ML VIAL IV SCH ×3 (03:48→20:23)
[2018-11-30 05:22] LABS: Basophils % 0.2 % (0.0-0.8); Hematocrit 33.5 VOL% (42.0-52.0); Hemoglobin 9.9 GM/DL (14.0-18.0); Immature Granulocytes Absolute 0.13 #; Lymphocytes # 0.3 10*3/uL (1.4-4.0); Lymphocytes % 2.1 % (21.2-54.2); Mean Corpuscular HGB Conc 29.6 GM/DL (32-36); Mean Corpuscular Hemoglobin 26 PG (27-34); Mean Corpuscular Volume 89.3 FL (87-102); Mean Platelet Volume 11.9 FL (9.6-12.0); Monocytes # 0.4 10*3/uL (0.11-0.8); Monocytes % 2.7 % (1.7-12.7); Neutrophils # 12.3 10*3/uL (1.4-7.4); Platelet Count 204 T/CUMM (130-400); Red Blood Count 3.75 MC/CUMM (3.8-5.5); Red Cell Distribution Width 17.6 % (9.3-17.3); White Blood Count 13.1 T/CUMM (4-12)
[2018-11-30 05:40] LABS: Calcium 8.4 MG/DL (8.5-10.1); Potassium 3.8 MMOL/L (3.5-5.1)
[2018-11-30 06:24] LABS: Lymphocytes 1 % (20-55); Segmented Neutrophils 99 % (50-85); Total Cells Counted 100
[2018-11-30 06:25] LABS: Anisocytosis Slight; Microcytosis Slight; Ovalocytes 1+; Polychromasia Slight
[2018-11-30 06:27] LABS: Platelet Estimate Normal; Target Cells Slight
[2018-11-30] MEDS: DORNASE ALFA 2.5 MG/2.5 ML VIAL RESP TX SCH ×2 (07:18→19:38)
[2018-11-30] MEDS ORDERED: MIDAZOLAM 10 MG/2 ML VIAL ONE (08:31)
[2018-11-30] MEDS ORDERED: MEPERIDINE 25 MG/1 ML VIAL ONE (08:31)
[2018-11-30] MEDS ORDERED: ALBUTEROL/IPRATROPIUM 3 ML NEB RESP TX ONE (09:09)
[2018-11-30] MEDS ORDERED: MIDAZOLAM 10 MG/2 ML VIAL IV ONE (09:36)
[2018-11-30] MEDS: DILTIAZEM CD 120 MG CAPSULE PO SCH ×2 (11:05→20:24)
[2018-11-30] MEDS: GABAPENTIN 600 MG TABLET PO SCH ×2 (11:05→20:27)
[2018-11-30] MEDS: MONTELUKAST 10 MG TABLET PO SCH ×2 (11:05→20:28)
[2018-11-30] MEDS: APIXABAN 2.5 MG TABLET PO SCH ×2 (11:07→20:26)
[2018-11-30] MEDS: SULFAMETHOX/TRIMETHOPRIM 800-160 MG TABLET PO SCH ×3 (11:07→20:24)
[2018-11-30] MEDS: ROSUVASTATIN 10 MG TABLET PO SCH (11:07)
[2018-11-30] MEDS: METOPROLOL TARTRATE 100 MG TABLET PO SCH ×2 (11:07→20:26)
[2018-11-30] MEDS: FUROSEMIDE 40 MG TABLET PO SCH (11:07)
[2018-11-30] MEDS: FLUCONAZOLE INJ 200 MG in PREMIX 1 EACH IV SCH (11:09)
[2018-11-30] MEDS: dilTIAZem Drip 125 MG/125 ML PREMIX IV SCH (11:39)
[2018-11-30] MEDS: BIMATOPROST 0.01% OPH SOLN 2.5 ML BOTTLE BOTH EYES SCH (20:26)
[2018-12-01] MEDS: ALBUTEROL/IPRATROPIUM 3 ML NEB RESP TX SCH ×4 (00:18→19:20)
[2018-12-01] MEDS: methylPREDNISolone SOD SUC 40 MG/1 ML VIAL IV SCH ×3 (02:09→21:27)
[2018-12-01 05:38] LABS: INR 1.1; PT Patient Result 11.4 SECS; Partial Thromboplastin Time 23.3 SECS (0-40)
[2018-12-01 06:12] LABS: Basophils % 0.1 % (0.0-0.8); Hematocrit 37.3 VOL% (42.0-52.0); Hemoglobin 11.2 GM/DL (14.0-18.0); Immature Granulocytes % 0.7 %; Immature Granulocytes Absolute 0.15 #; Lymphocytes # 0.2 10*3/uL (1.4-4.0); Lymphocytes % 1.1 % (21.2-54.2); Mean Corpuscular Hemoglobin 27 PG (27-34); Mean Corpuscular Volume 88.8 FL (87-102); Mean Platelet Volume 11.9 FL (9.6-12.0); Monocytes # 0.7 10*3/uL (0.11-0.8); Monocytes % 3.7 % (1.7-12.7); NRBC # 0.02 10*3/uL; Neutrophils % 94.4 % (38.7-73.9); Platelet Count 261 T/CUMM (130-400); Red Cell Distribution Width 17.6 % (9.3-17.3); White Blood Count 20.1 T/CUMM (4-12)
[2018-12-01 07:19] LABS: Hypochromasia 1+; Lymphocytes 1 % (20-55); Nucleated Red Blood Cells 1 (0-5); Platelet Estimate Adequate; Segmented Neutrophils 96 % (50-85); Total Cells Counted 100
[2018-12-01 07:20] LABS: Microcytosis Slight; Ovalocytes Slight
[2018-12-01] MEDS: DORNASE ALFA 2.5 MG/2.5 ML VIAL RESP TX SCH ×2 (07:22→19:28)
[2018-12-01] MEDS ORDERED: diphenhydrAMINE 50 MG/1 ML VIAL IM ONE (08:30)
[2018-12-01] MEDS ORDERED: BENZONATATE 100 MG CAPSULE PO ONE (08:30)
[2018-12-01] MEDS ORDERED: MEPERIDINE 50 MG/1 ML VIAL IM ONE (08:30)
[2018-12-01] MEDS ORDERED: LIDOCAINE 2% VISCOUS 100 ML BOTTLE SWISH/SPIT ONE (09:00)
[2018-12-01] MEDS ORDERED: LIDOCAINE 1% 20 ML VIAL MISC INJ ONE (09:00)
[2018-12-01] MEDS ORDERED: LIDOCAINE 2% 20 ML VIAL RESP TX ONE (09:00)
[2018-12-01] MEDS: FLUCONAZOLE INJ 200 MG in PREMIX 1 EACH IV SCH (12:33)
[2018-12-01] MEDS: DILTIAZEM CD 120 MG CAPSULE PO SCH ×2 (12:34→21:20)
[2018-12-01] MEDS: APIXABAN 2.5 MG TABLET PO SCH ×2 (12:34→21:20)
[2018-12-01] MEDS: SULFAMETHOX/TRIMETHOPRIM 800-160 MG TABLET PO SCH ×2 (12:36→21:20)
[2018-12-01] MEDS: METOPROLOL TARTRATE 100 MG TABLET PO SCH ×2 (12:37→21:20)
[2018-12-01] MEDS: GABAPENTIN 600 MG TABLET PO SCH ×2 (12:37→21:18)
[2018-12-01] MEDS: ROSUVASTATIN 10 MG TABLET PO SCH (12:38)
[2018-12-01] MEDS: MONTELUKAST 10 MG TABLET PO SCH ×2 (12:38→21:19)
[2018-12-01] MEDS: FUROSEMIDE 40 MG TABLET PO SCH (12:49)
[2018-12-01] MEDS: dilTIAZem Drip 125 MG/125 ML PREMIX IV SCH (13:36)
[2018-12-01] MEDS: BIMATOPROST 0.01% OPH SOLN 2.5 ML BOTTLE BOTH EYES SCH (21:30)
[2018-12-02] MEDS: ALBUTEROL/IPRATROPIUM 3 ML NEB RESP TX SCH ×4 (01:49→18:59)
[2018-12-02] MEDS: methylPREDNISolone SOD SUC 40 MG/1 ML VIAL IV SCH ×3 (03:57→18:31)
[2018-12-02] MEDS: DORNASE ALFA 2.5 MG/2.5 ML VIAL RESP TX SCH ×2 (08:00→20:10)
[2018-12-02] MEDS: GABAPENTIN 600 MG TABLET PO SCH ×2 (09:08→21:18)
[2018-12-02] MEDS: SULFAMETHOX/TRIMETHOPRIM 800-160 MG TABLET PO SCH ×2 (09:09→21:18)
[2018-12-02] MEDS: DILTIAZEM CD 120 MG CAPSULE PO SCH ×2 (09:10→21:18)
[2018-12-02] MEDS: MONTELUKAST 10 MG TABLET PO SCH ×2 (09:11→21:18)
[2018-12-02] MEDS: METOPROLOL TARTRATE 100 MG TABLET PO SCH ×2 (09:11→21:18)
[2018-12-02] MEDS: FUROSEMIDE 40 MG TABLET PO SCH ×2 (09:11→17:06)
[2018-12-02] MEDS: APIXABAN 2.5 MG TABLET PO SCH ×2 (09:11→21:18)
[2018-12-02] MEDS: ROSUVASTATIN 10 MG TABLET PO SCH (09:12)
[2018-12-02] MEDS: dilTIAZem Drip 125 MG/125 ML PREMIX IV SCH (10:48)
[2018-12-02] MEDS: FLUCONAZOLE INJ 200 MG in PREMIX 1 EACH IV SCH (11:30)
[2018-12-02] MEDS: CEFTAROLINE 600 MG in SODIUM CHLORIDE 0.9% 100 ML IV SCH (17:06)
[2018-12-02] MEDS: BIMATOPROST 0.01% OPH SOLN 2.5 ML BOTTLE BOTH EYES SCH (21:19)
[2018-12-03] MEDS: ALBUTEROL/IPRATROPIUM 3 ML NEB RESP TX SCH ×4 (00:39→19:42)
[2018-12-03] MEDS: methylPREDNISolone SOD SUC 40 MG/1 ML VIAL IV SCH ×3 (03:20→18:30)
[2018-12-03] MEDS: CEFTAROLINE 600 MG in SODIUM CHLORIDE 0.9% 100 ML IV SCH ×2 (04:15→16:09)
[2018-12-03 05:22] LABS: Basophils % 0.2 % (0.0-0.8); Hematocrit 33.6 VOL% (42.0-52.0); Immature Granulocytes % 1.4 %; Immature Granulocytes Absolute 0.18 #; Lymphocytes # 0.2 10*3/uL (1.4-4.0); Lymphocytes % 1.8 % (21.2-54.2); Mean Corpuscular HGB Conc 29.8 GM/DL (32-36); Mean Corpuscular Hemoglobin 26 PG (27-34); Mean Corpuscular Volume 88.7 FL (87-102); Mean Platelet Volume 11.4 FL (9.6-12.0); Monocytes # 0.3 10*3/uL (0.11-0.8); Monocytes % 2.2 % (1.7-12.7); Neutrophils # 12.3 10*3/uL (1.4-7.4); Neutrophils % 94.4 % (38.7-73.9); Platelet Count 264 T/CUMM (130-400); Red Blood Count 3.79 MC/CUMM (3.8-5.5); Red Cell Distribution Width 17.8 % (9.3-17.3)
[2018-12-03 05:57] LABS: Albumin 2.3 G/DL (3.4-5.0); Bilirubin,Total 0.5 MG/DL (0.2-1.0); Calcium 8.3 MG/DL (8.5-10.1); Osmolality,Calculated 291.3 MOS/KG (273-304); Total Protein 5.6 G/DL (6.4-8.3)
[2018-12-03 06:04] LABS: Lymphocytes 2 % (20-55); Segmented Neutrophils 96 % (50-85); Total Cells Counted 100
[2018-12-03 06:05] LABS: Hypochromasia 1+; Microcytosis Slight; Ovalocytes Slight; Platelet Estimate Adequate
[2018-12-03] MEDS: DORNASE ALFA 2.5 MG/2.5 ML VIAL RESP TX SCH ×2 (07:50→19:42)
[2018-12-03] MEDS ORDERED: FUROSEMIDE 40 MG/4 ML VIAL IV ONE (08:42)
[2018-12-03] MEDS: GABAPENTIN 600 MG TABLET PO SCH ×2 (08:44→21:48)
[2018-12-03] MEDS: FUROSEMIDE 40 MG TABLET PO SCH ×2 (08:45→16:09)
[2018-12-03] MEDS: MONTELUKAST 10 MG TABLET PO SCH ×2 (08:45→21:48)
[2018-12-03] MEDS: ROSUVASTATIN 10 MG TABLET PO SCH (08:45)
[2018-12-03] MEDS: SULFAMETHOX/TRIMETHOPRIM 800-160 MG TABLET PO SCH ×2 (08:45→21:48)
[2018-12-03] MEDS: APIXABAN 2.5 MG TABLET PO SCH ×2 (08:45→21:48)
[2018-12-03] MEDS: DILTIAZEM CD 120 MG CAPSULE PO SCH ×2 (08:45→21:47)
[2018-12-03] MEDS: METOPROLOL TARTRATE 100 MG TABLET PO SCH ×2 (08:46→21:48)
[2018-12-03] MEDS: dilTIAZem Drip 125 MG/125 ML PREMIX IV SCH (08:46)
[2018-12-03] MEDS: FLUCONAZOLE INJ 200 MG in PREMIX 1 EACH IV SCH (12:03)
[2018-12-03] MEDS: BIMATOPROST 0.01% OPH SOLN 2.5 ML BOTTLE BOTH EYES SCH (21:49)
[2018-12-04] MEDS: ALBUTEROL/IPRATROPIUM 3 ML NEB RESP TX SCH ×3 (00:18→09:02)
[2018-12-04] MEDS: methylPREDNISolone SOD SUC 40 MG/1 ML VIAL IV SCH ×2 (04:25→11:39)
[2018-12-04] MEDS: CEFTAROLINE 600 MG in SODIUM CHLORIDE 0.9% 100 ML IV SCH (04:28)
[2018-12-04] MEDS: GABAPENTIN 600 MG TABLET PO SCH (08:15)
[2018-12-04] MEDS: DILTIAZEM CD 120 MG CAPSULE PO SCH (08:15)
[2018-12-04] MEDS: MONTELUKAST 10 MG TABLET PO SCH (08:15)
[2018-12-04] MEDS: FUROSEMIDE 40 MG TABLET PO SCH (08:16)
[2018-12-04] MEDS: ROSUVASTATIN 10 MG TABLET PO SCH (08:16)
[2018-12-04] MEDS: SULFAMETHOX/TRIMETHOPRIM 800-160 MG TABLET PO SCH (08:16)
[2018-12-04] MEDS: APIXABAN 2.5 MG TABLET PO SCH (08:16)
[2018-12-04] MEDS: METOPROLOL TARTRATE 100 MG TABLET PO SCH (08:16)
[2018-12-04] MEDS: dilTIAZem Drip 125 MG/125 ML PREMIX IV SCH (08:16)
[2018-12-04] MEDS: DORNASE ALFA 2.5 MG/2.5 ML VIAL RESP TX SCH (09:09)
[2018-12-04] MEDS: FLUCONAZOLE INJ 200 MG in PREMIX 1 EACH IV SCH (11:40)
[2018-12-04 12:01] VITALS: BP 119/63
== END 2018-12-04 14:45 | DRG 166 ==
LOC: EDBD → EDUNIT# → N.ED 04:07 → SUATTDRO 06:08 → N.EDINP 06:52 → SUATTDRO 06:52 → N.TELEN 19:20
PROVIDERS: ADMIT Family Medicine; ATTEND Emergency Medicine